=== PATIENT | female | born 1955 | race Two or more races ===

== ENCOUNTER → 2018-03-12 11:01 | Outpatient (CLI) | payer SELFPAY ==
[2018-03-17 11:04] LABS: HPV Reflexed? NOT INDICATED
== END ==
PROVIDERS: Visit Provider Obstetrics & Gynecology
DX: Z12.4 Encounter for screening for malignant neoplasm of cervix (principal)
CPT/HCPCS: 88175; G0145

== ENCOUNTER → 2020-01-19 | Outpatient (CLI) | payer SELFPAY ==
[2020-01-21 15:46] LABS: HPV Reflexed? NOT INDICATED
== END | disposition home or self-care (01) ==
LOC: LABSPEC 01-20 09:19
PROVIDERS: Visit Provider Obstetrics & Gynecology
DX: Z12.4 Encounter for screening for malignant neoplasm of cervix (principal)
CPT/HCPCS: 88175; G0145